=== PATIENT | male | born 1960 | race Caucasian/White ===

== ENCOUNTER → 2020-05-21 | Outpatient (CLI) | payer SELFPAY ==
--- NOTE | 2020-05-21 | FLU_PTH ---
PATIENT: JOE REYES LOC: [facility] U#:[id number] AGE/SX: 60/M ROOM: RE05/21/[address]: Dr. Manan Boudreaux MD : 1960 BED: DIS: 05/21/2020 SPEC #: [id number] RECD: 05/21/20 18:12 STATUS: ADE ARTHUR #: [id number] DESIRAE: 05/21/20 00:[address]: Manan Boudreaux DEPT: CYTOLOGY RECD BY: Jimmy Vega Tissues: Parotid gland, NOS Procedures: Special Stain Group II Surgery Specimen Level IV Cytospin Fluid HEADER OPERATION: Fine needle aspiration PRE-OP DIAGNOSIS: Right parotid mass TISSUE SUBMITTED: Right neck mass DIAGNOSIS CYTOLOGY Right neck mass, FNA (cytospin and cell block): Negative for malignant cells. See cytology study and comment. SJ:mac 05/25/20 COMMENT Correlation with clinical, radiologic findings and appropriate follow up are necessary. Case has been reviewed in consultation with Dr. Gracia who concurs with the above diagnosis. IDC:AM CYTOLOGY STUDY Slides are reviewed. The specimen consists of anucleated keratinous debris, benign lymph node tissue and macrophages. CYTOLOGY GROSS Received is 40 ml of red cloudy fluid labeled with the patient's name and and designated per the requisition as right neck mass. Submitted for cytology preparation including cell block. / mac 05/22/20 TC:5 CPT: 87533, 84293
== END | disposition home or self-care (01) ==
LOC: LABSPEC 05-22 06:18
PROVIDERS: Referring Provider Otolaryngology; Visit Provider Otolaryngology
DX: R22.1 Localized swelling, mass and lump, neck (principal)
CPT/HCPCS: 88108; 88305; 88313

== ENCOUNTER 2020-06-05 08:17 | Inpatient (IN) | payer MEDICARE, SELFPAY ==
[2020-06-05] VITALS (10 sets, daily range): BP systolic 134–157; BP diastolic 72–97; PULSE 51–109; RESP 16–18; TEMP 36.3–36.9; O2SAT 95–99; BMI 27.3; BMI 28.4
--- NOTE | 2020-06-05 | TOBX_PTH ---
PATIENT: JOE REYES LOC: [facility] U#:[id number] AGE/SX: 60/M ROOM: [facility] [place]06/05/[address]: Dr. Manan Boudreaux MD : 1960 BED: 1 DIS: 06/06/2020 SPEC #: [id number] RECD: 06/05/20 11:18 STATUS: ADE RENed #: [id number] DESIRAE: 06/05/20 00:[address]: Manan Boudreaux DEPT: SURGICAL PATHOLOGY RECD BY: Constance Felton ENTERED: 06/05/20 11:51 SP TYPE: TONGUE BX OTHR DR: No Primary Care Phys Tissues: A - Tongue, NOS B - Parotid gland, NOS Procedures: Frozen Section (charge) Frozen Section Add'l ([facility]) Surgery Specimen Level IV Surgery Specimen Level V HEADER OPERATION: Direct laryngoscopy with biopsy, parotidectomy PRE-OP DIAGNOSIS: Mass of right parotid gland, pain in throat, abnormal CT TISSUE SUBMITTED: A - Mass right tongue base, FS, B - Right parotid mass, FS FROZEN SECTION DIAGNOSIS A. Right tongue base, biopsy: Lingual tonsillar tissue with squamous cell atypia, parakeratosis and squamous selvin. :mac 06/05/20 Case has been reviewed in consultation with Dr. Gracia who concurs with the above diagnosis. IDC:CORTES Bolaños. Right parotid mass, parotidectomy: Warthin's tumor. :mac 06/05/20 MICROSCOPIC DIAGNOSIS A. Right tongue base, biopsy: Consistent with lingual tonsillar tissue with mild squamous atypia, parakeratosis and squamous selvin formation. Negative for malignancy. See comment. B. 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 Changes consistent with previous biopsy site. :mac 06/08/20 COMMENT A. If there is a high suspicion of malignancy, rebiopsy is suggested if clinically indicated. Please make reference to previous specimen ([id number]) right neck mass, FNA with diagnosis of negative for malignant cells. MICROSCOPIC DESCRIPTION Slides are reviewed. GROSS DESCRIPTION A - Received fresh for frozen section diagnosis labeled with the patient's name is a specimen designated right tongue base. The specimen consists of two irregular fragments of bauer soft tissue that in aggregate measure 0.8 x 0.5 x 0.3 cm. The entire specimen is submitted for frozen section diagnosis in one cassette. / EMELIA:mac 06/05/20 B - Received fresh for frozen section diagnosis labeled with the patient's name is a specimen designated right parotid mass. The specimen consists of a piece of glandular tissue weighing 17.3 gm and measuring 4.5 x 3 x 2 cm. A soft to cystic mass is noted at one edge of the specimen measuring 3.5 x?2.5 x 2 cm. The specimen is inked and serially sectioned and reveals the cystic mass is filled with grayish-bauer, applesauce-like material. Two frozen sections are done from the mass including surrounding tissue. The entire specimen is submitted in nine cassettes as follows: 1 & 2 - frozen sections, mass with surrounding tissue, 3-9 - rest of the specimen from one end to another end. / EMELIA:mac 06/05/20 TC:1 CPT: 06519, 47045, 36677 x2, 12762
--- NOTE | 2020-06-05 09:05 | EKG12_ITS ---
Test Reason : PRE OP Blood Pressure : / mmHG Vent. Rate : 054 BPM Atrial Rate : 054 BPM P-R Int : 156 ms QRS Dur : 090 ms QT Int : 420 ms P-R-T Axes : 058 063 034 degrees QTc Int : 398 ms Sinus bradycardia Otherwise normal ECG No previous ECGs available Confirmed by TIARA PASCUAL ([id number]), food expeditor ISABELLA MUNOZ ([id number]) on 06/08/2020 2:24:10 PM Referred By: Manan Boudreaux Confirmed By:TIARA PASCUAL
[2020-06-05] MEDS: Lactated Ringers 1,000 ML 100 ML IV ×2 (09:31→20:24)
[2020-06-05 10:43] LABS: Anion Gap 1 (5-15); BUN 10 mg/dL (7-18); BUN/Creat Ratio 13.7 RATIO (10-20); Chloride 111 mmol/L (98-107); Creatinine, Serum 0.73 mg/dL (0.70-1.30); EST Glomerular Filtration Rate 117 mL/min (>60); Est Glom Filt Rate - Afr Amer 141 mL/min (>60); Estimated Creatinine Clearance 97.11 ml/min; Glucose 98 mg/dL (74-106); Potassium 4.2 mmol/L (3.5-5.1); Sodium Level 140 mmol/L (136-145)
[2020-06-05] MEDS: Oxymetazoline 0.05% 1 SPRAY SPRAY.BTL 15 SPRAY (11:30)
[2020-06-05] MEDS: Lidocaine 4% 50 ML Bottle (11:30)
--- NOTE | 2020-06-05 13:32 | OP.PCM_ITS ---
Problem List (1) Warthin tumor Status: Acute (2) Vocal cord polyps Status: Acute (3) Benign neoplasm of base of tongue Status: Acute Report of Operation Date of Procedure: 06/05/20 Pre-Operative Diagnosis: CT abnormality of tongue base, right parotid mass, history of smoking Post-Operative Diagnosis: Warthin's tumor right parotid, tongue base mass, bilateral vocal fold polyps Surgery/Procedure Performed:: Direct laryngoscopy, biopsy of right tongue base, excision of right parotid mass with preservation of facial nerve Description of Surgical Findings:: Mr. Ro is a 60-year-old male smoker who presents with a six-month history of a right neck mass with CT abnormality of the tongue base and vallecula who is having some progressive sore throat. Biopsy of the right parotid mass initially showed benign cystic material and secondary biopsy showed degenerating squamous epithelium given his history and CT findings concern for malignancy was raised and biopsy and excision of the mass with possible neck dissection or other resection if malignancy is identified was advised and he was agreeable to proceed. The risk of coronavirus exposure in this. Was also discussed and he is agreeable to accept this risk in the interest of addressing his mouth and sore throat complaints. The risks, alternatives, potential complications, and benefits were discussed at length and any questions answered to the patient and/or caregiver's satisfaction. Witnessed informed consent was obtained in the office, and the patient and/or caregiver was agreeable to proceed. procedure went as follows: The patient was identified in the preoperative holding and brought to the operating room, placed under general anesthesia, and intubated. When appropriate anesthesia was obtained, the head of bed was rotated and the patient prepped and draped in usual sterile fashion. A moistened gauze was then placed to protect the upper gums and the Dedo laryngoscope then introduced. Direct laryngoscopy was then carried out. The lateral posterior pharyngeal wall mucosa, tonsillar fossa, vallecula, piriforms, and epiglottis were noted to be normal in appearance. The true and false vocal folds were then brought into view. There is noted to be bilateral benign- appearing vocal polyps. Manual palpation of the tongue base revealed right lateral firmness although no obvious mucosal ulceration friability or lesion was noted. The area was then biopsied under direct visualization through the laryngoscope with a cup forceps and sent for frozen section pathologic evaluation. This revealed lymphoid tissue and some mild squamous atypia with further assessment pending permanent sections but no obvious malignancy. Pledgets were then placed over the area of biopsy for hemostasis. The pledgets were then removed and the patient taken out of suspension and returned to anesthesia, was revived, and extubated without complication having tolerated the procedure well. The right parotid lesion site was marked in accordance with the patient's physical skin exam, office notes, and consent. When appropriate anesthesia was obtained, the facial nerve monitoring electrodes were then placed in accordance with the manufacture's directions over the right side of the face and confirmed to be operational. The planned incision was then marked with a marking pen and injected with 1% lidocaine with 100,000 epinephrine for a total of 7 mL. Sterile draping and skin preparation was then applied. After allowing for vaso constriction, a standard parotidectomy incision was then made using a 15 blade scalpel through the skin and subcutaneous tissues. The subcutaneous tissue was then dissected and the greater auricular nerve identified with the branches along the posterior aspect of the incisional flap preserved. Dissection was then carried down along the sternocleidomastoid freeing the parotid attachments to this muscle. Dissection was then carried out along the cervical and marginal mandibular branch of the facial nerve as these were identified lateral to the tumor mass. These were then followed to the main nerve trunk which was then preserved and from the overlying tumor mass. The gland was then resected following out along the facial nerve branches working inferiorly to superiorly and freeing the mass from the parotid gland sacrificing a cuff of normal-appearing parotid tissue. This was then sent for surgical specimen which revealed a benign Warthin's tumor. Operative stimulation of the facial nerve branches confirmed preservation of function. The wound bed was then copiously irrigated with saline solution and a #7 flat ANTONETTE drain placed and brought out through separate stab incision in the skin. The wound was then closed deeply with interrupted 3-0 Vicryl sutures followed by a running 5-0 Monocryl to the skin. The patient was then returned to anesthesia, was revived, and extubated without complication having tolerated the procedure well. Type of Anesthesia:: General Anesthesiologist: Haider Carver Special Medications: none Specimen's removed: tongue base biopsy, right parotid mass Drains: #7 flat ANTONETTE Estimated Blood Loss (mL): 50 mL Fluids Replaced: 1200 mL Grafts/Implants Used: none - Complications none - Admit VTE Documentation VTE Present on Admission: No VTE Mechan Device Prophylaxis: SCD's VTE Pharm Prophylaxis ordered?: No
--- NOTE | 2020-06-05 13:43 | DCINST_ITS ---
- Discharge Diagnoses Current Active Problems: Current Active and Chronic Problems Warthin tumor (Acute) Vocal cord polyps (Acute) Benign neoplasm of base of tongue (Acute) You will use the following diet at home:: No restrictions Discharge Activity: Return to Normal Activity, May not drive while taking narcotic pain medications. Call your doctor if your incision/area has: Increased Pain/ Swelling, Foul Smelling Discharge, Swelling at the incision site Call your doctor if you observe: Fever of 101 or Higher, Uncontrolled pain Allergies/Adverse Reactions: Allergies No Known Allergies Allergy (Verified 06/05/20 09:06) Medications to take at Discharge NK 06/03/20 Primary Care Physician: Care Physician,No Primary [Primary Care Provider] - Test Results: Test results from this visit will be discussed in further detail at your follow- up appointment, if applicable. Please Follow Up With: Manan Boudreaux MD When: 2 weeks
[2020-06-05] MEDS: Ondansetron 4 MG/2 ML Vial IV (15:37)
[2020-06-05] MEDS: HYDROcodone Bitartrate/Apap 5/325 Tablet PO ×2 (16:26→22:36)
[2020-06-05] MEDS: Ibuprofen 400 MG Tablet PO (16:26)
[2020-06-05] MEDS: Acetaminophen 500 MG Tablet PO (22:35)
[2020-06-06 00:30] VITALS: BP 122/71; PULSE 59; RESP 16; TEMP 36.9; O2SAT 95
[2020-06-06 04:30] VITALS: BP 126/78; PULSE 65; RESP 16; TEMP 36.8; O2SAT 96
[2020-06-06 08:30] VITALS: BP 123/76; PULSE 57; RESP 16; TEMP 36.6; O2SAT 95
--- NOTE | 2020-06-06 09:47 | PCM.PN.SRG ---
Patient Problems: Active and Suspected Problems Warthin tumor (Acute) Vocal cord polyps (Acute) Benign neoplasm of base of tongue (Acute) Subjective: The patient reports he is done well overnight with no significant pain, swelling, or facial weakness. Objective: Is well-appearing at the bedside. The drain has put out approximately 5 cc of serous discharge since it was emptied overnight. There is very minimal weakness of the lower lip which the patient has not noticed and otherwise facial movement is full and intact. The right neck incision is clean dry and intact without fluid collections, redness, or discharge. - Physical Exam Vitals/I&O's: Vital Signs Temp Pulse Resp BP Pulse Ox 98.3 F 65 16 126/78 H 96 06/06/20 04:30 06/06/20 04:30 06/06/20 04:30 06/06/20 04:30 06/06/20 04:30 Oxygen Delivery Method Room Air Weight: 80 kg Body Mass Index (BMI) 28.4 Intake and Output for Last 24 Hours 06/04/20 06/05/20 06/06/20 23:59 23:59 23:59 Intake Total 1350 / 1700 1850 / 1850 Output Total 510 / 1090 1415 / 1415 Balance 840 / 610 435 / 435 General: Alert, Oriented x3 HEENT: Atraumatic, PERRLA Oral: Moist Mucosa Neck: Supple Lungs: Normal air movement, No rhonchi, No wheeze Cardiovascular: Regular rate, Regular Rhythm Abdomen: Soft, Non Tender, Non-Distended Extremities: No clubbing, No cyanosis, No edema Skin: No rashes, No breakdown Psych/Mental Status: Alert and oriented to time, place, person, mood and affect Laboratory Results 06/05/20 09:30: Sodium Cancelled, Potassium Cancelled, Chloride Cancelled, Carbon Dioxide Cancelled, Anion Gap Cancelled, BUN Cancelled, Creatinine Cancelled, Estim Creat Clear Calc Cancelled, Est GFR (MDRD) Af Amer Cancelled, Est GFR (MDRD) Non-Af Cancelled, BUN/Creatinine Ratio Cancelled, Glucose Cancelled, Calcium Cancelled 06/05/20 10:21: Sodium 140, Potassium 4.2, Chloride 111 H, Carbon Dioxide 28.0, Anion Gap 1 L, BUN 10, Creatinine 0.73, Estim Creat Clear Calc 97.11, Est GFR (MDRD) Af Amer 141, Est GFR (MDRD) Non-Af 117, BUN/Creatinine Ratio 13.7, Glucose 98, Calcium 9.0 Current Medications Acetaminophen (Tylenol) 500 mg PO Q4H PRN PRN PRN Reason: Pain Score 1-5/10 Last Admin: 06/05/20 22:35 Dose: 500 mg Documented by: Hydrocodone Bitart/Acetaminophen ([place] 5mg-325mg) 1 tablet PO Q6H PRN PRN PRN Reason: Pain Score 6-10/10 Last Admin: 06/05/20 22:36 Dose: 1 tablet Documented by: Ibuprofen (Motrin) 400 mg PO Q6H PRN PRN PRN Reason: Pain Score 4-10/10 Last Admin: 06/05/20 16:26 Dose: 400 mg Documented by: Ondansetron HCl (Zofran) 4 mg IV Q4H PRN PRN PRN Reason: Nausea Last Admin: 06/05/20 15:37 Dose: 4 mg Documented by: Sodium Chloride () 10 - 40 ml IV UD PRN PRN Reason: SALINE FLUSH Medical Necessity - Tobacco Use Smoking Status: Former smoker Tobacco Use: Non-smoker Assessment/Plan All Active Problems Warthin tumor (Acute) Vocal cord polyps (Acute) Benign neoplasm of base of tongue (Acute) Patient is doing well postoperative day #1 status post right parotidectomy for benign Warthin's tumor and biopsy of the right tongue base. Drain output has been nominal overnight and this was removed at the bedside today. We will plan for discharge this morning to home with follow-up in the office in 10 to 14 days for suture removal. We have discussed the mass of the right parotid was a benign Warthin's tumor and resection is anticipated to be curative. The tongue base biopsy did show some possible atypia but the possibility malignant malignancy could not be confirmed with further evaluation pending and that this may require additional follow-up, work-up, or surgical treatment pending the final pathologic findings.
--- NOTE | 2020-06-06 10:30 | CASEMGMT ---
ABRAHAM PEACE assessment: Face to Face with patient for initial transition planning/care coordination assessment. ABRAHAM PEACE introduced self and role at [facility], pt voices understanding and consents to assessment at this time. Pt is sitting up on side of bed in no distress at this time. Pt's sister, Ayaka Haq, is at bedside during assessment. Care providers, pharmacy, and demographics verified at this time. Admitting dx: Right direct larynoscopy parotidectomy poss neck dissection PCP: Pt states has PCP near [place], [place] where he lives but cannot remember name at this time. Specialists: LEE Boudreaux Preferred Pharmacy: [facility] Insurance: MCR A Prescription Benefit: Pt states no Rx coverage but states is normally not on meds and states no concerns. Living Will/HPOA: Pt states does not have LW/HPOA and declines AD info at this time. LNOK: Ayaka Haq, sister Living Arrangements: Pt states lives alone in 1 story home and states no concerns at home at this time. Pt states is independent with ADL's. Transportation: Pt states drives self and states no transportation concerns at this time. DME/HHC: Pt states has a BP cuff and states no further DME or need for any at this time. Pt states no hx of HHC or SNF in the past. Pt states no concerns with going home at time of discharge. Pt states is on disability. Pt states quit smoking in September and does not drink ETOH. Pt states no further concerns/needs at this time. CM to follow for any further discharge planning/needs. Advised pt to ask for CM if any further questions/concerns/needs arise, voices understanding. Pt Goal: Home Plan[place] ABRAHAM PEACE
[2020-06-06] MEDS: Acetaminophen 500 MG Tablet PO (11:31)
[2020-06-06] MEDS: HYDROcodone Bitartrate/Apap 5/325 Tablet PO (11:31)
== END 2020-06-06 12:10 | disposition home or self-care (01) | DRG 139 ==
LOC: ACINP 08:21 → MS3 14:02
PROVIDERS: Anesthesiology; Admitting Provider Otolaryngology; Referring Provider Otolaryngology; Visit Provider Otolaryngology
PROC: 0CJS8ZZ Inspection of Larynx, Via Natural or Artificial Opening Endoscopic (ICD-10-PCS; CPT 31575; principal; 2020-06-05 09:30)
PROC: 0CBM8ZX Excision of Pharynx, Via Natural or Artificial Opening Endoscopic, Diagnostic (ICD-10-PCS; CPT 42410; 2020-06-05 09:30)
DX: D11.0 Benign neoplasm of parotid gland (principal); J38.1 Polyp of vocal cord and larynx; R23.4 Changes in skin texture; K21.9 Gastro-esophageal reflux disease without esophagitis; M19.90 Unspecified osteoarthritis, unspecified site; E11.9 Type 2 diabetes mellitus without complications; I51.9 Heart disease, unspecified; Z87.891 Personal history of nicotine dependence
CPT/HCPCS: 36415; 80048; 87635; 88305; 88307; 88331; 88332; 93005; 94799; 99406; J7120; J2405; U0003